=== PATIENT | male | born 2000 | race Caucasian/White ===

== ENCOUNTER 2018-10-05 16:41 | Emergency (ER) | payer OTHER ==
[2018-10-05 16:46] VITALS: BP 140/86
--- NOTE | 2018-10-05 17:13 | EDPHY ---
H & P Time Seen by Provider: 10/05/18 17:12 - Personal History Current Tetanus Diphtheria and Acellular Pertussis (TDAP): Yes - Medical/Surgical History Other PMH: anxiety/depression - Social History Smoking Status: Never smoked Constitutional: Initial Vital Signs Temperature (C) 37 C 10/05/18 16:44 Heart Rate 75 10/05/18 16:44 Respiratory Rate 18 10/05/18 16:44 Blood Pressure 140/86 H 10/05/18 16:44 O2 Sat (%) 97 10/05/18 16:44 O2 Delivery Mode Room Air Allergies/Adverse Reactions: No Known Allergies Allergy (Verified 10/05/18 16:43) Home Medications: Medication Instructions Recorded Escitalopram Oxalate [Lexapro] 10 mg PO 10/05/18 Methylphenidate HCl [Concerta] 18 mg PO 10/05/18 Medical Decision Making ED Course/Re-evaluation: CHIEF COMPLAINT: Right hand injury HISTORY OF PRESENT ILLNESS: The patient is a healthy 18 y/o male complaining of right hand injury. He reports he punched a wall to relieve stress. He has a few small abrasions to the knuckles on the right hand and pain at the base of the middle finger carpal bone junction. He denies any other symptoms or injuries. REVIEW OF SYSTEMS: A comprehensive 10 system review of systems is otherwise negative aside from elements mentioned in the history of present illness and medical decision making. PHYSICAL EXAM: HR, BP, O2 Sat, RR. Temp noted General Appearance: Alert, well hydrated, appropriate, and non-toxic appearing. Musculoskeletal: Normal active ROM of right hand. no significant pain on palpation of MTPs, DIPs, PIPs. normal flex/extend Neurological: Alert, appropriate, and interactive. Skin: Small abrasions to right knuckles. No rashes, good turgor, no nodules on palpation. Past medical history: Denies Past surgical history: Denies Family history: Non-contributory Social history: Mother at bedside, lives in [place], PCP: Dr. Mckenna DIAGNOSTICS/PROCEDURES/CRITICAL CARE TIME: Study: Right hand x-ray Indication: Trauma Results: After viewing the images myself on the PACS system. My interpretation of the images is: no acute process. The radiologist interpretation is no acute fracture Incidental findings include small, healed bone chip in the index finger. DIFFERENTIAL DIAGNOSIS: The differential diagnosis for this patient's condition included but was not limited to fracture, dislocation, and soft tissue injury. MEDICAL DECISION MAKING: The patient presents with right hand injury after punching a wall. X-ray is negative for fracture. Exam shows small abrasions to the right knuckles. I feel he is safe for discharge. He and his mother agree to this course of action. Departure - Departure Disposition: [facility] Clinical Impression: Injury of right hand, Abrasion of right hand Condition: Good Instructions: Wrist Injury (ED) Additional Instructions: Return for worsening condition. Referrals: Ronda Mckenna MD [Primary Care Provider] - As per Instructions Report Scribed for: Ronni Jimenez Report Scribed by: Komal Gunn Date of Report: 10/05/18 Time of Report: 17:19
== END 2018-10-05 17:47 ==
DX: S60.511A Abrasion of right hand, initial encounter (principal); W22.09XA Striking against other stationary object, initial encounter

== ENCOUNTER → 2019-03-27 | Outpatient (CLI) | payer OTHER | LOC: FIMAGING 10:02 ==